=== PATIENT | female | born 1950 | race Caucasian/White ===

== ENCOUNTER 2019-11-02 12:38 | Observation (INO) | payer MEDICARE, OTHER ==
[2019-11-02 13:29] LABS: #Basophils 0.1 thou/uL (0.0-0.2); #Eosinphils 0.1 thou/uL (0.0-0.7); #Lymphocytes 1.4 thou/uL (1.20-3.40); #Monocytes 0.5 thou/uL (0.11-0.59); #Neutrophils 6.5 thou/uL (1.40-6.50); %Basophils 0.7 % (0.0-1.0); %Eosinophils 0.9 % (0.0-10.0); %Monocytes 5.9 % (0.0-10.0); %Neutrophils 76.6 % (42.0-75.0); Hemoglobin 12.2 g/dL (12.0-16.0); Mean Corpuscular HGB CONC 34.1 g/dL (32.0-36.0); Mean Corpuscular Hemoglobin 31.6 pg (27.0-31.0); Mean Corpuscular Volume 92.7 fL (78.0-98.0); Mean Platelet Volume 8.6 fL (7.4-10.4); Platelet Count 270 thou/uL (130-400); RBC Distribution Width 11.2 % (11.5-14.5); Red Blood Cell (RBC) Count 3.86 mill/uL (4.20-5.40); White Blood Cell (WBC) Count 8.5 thou/uL (4.8-10.8)
[2019-11-02] MEDS ORDERED: Aspirin 325 MG TAB ONE (13:32)
[2019-11-02 13:48] LABS: ALT (SGPT) 18 U/L (8-55); AST (SGOT) 16 U/L (5-34); Albumin 4.3 g/dL (3.4-4.8); Alkaline Phosphatase 104 U/L (40-110); Anion Gap 17 mmol/L (10-20); BUN (Urea Nitrogen) 18 mg/dL (9.8-20.1); Bilirubin, Total 0.7 mg/dL (0.2-1.2); CK (CPK) 87 U/L (29-168); Calc. Creatinine Clearance 0 mL/min (70-130); Calcium 9.9 mg/dL (7.8-10.44); Carbon Dioxide 25 mmol/L (23-31); Chloride 104 mmol/L (98-107); Estimated GFR-MDRD 61; Globulin 2.3 g/dL (2.4-3.5); Glucose 113 mg/dL (80-115); Potassium 4.7 mmol/L (3.5-5.1); Protein, Total 6.6 g/dL (6.0-8.3); Sodium 141 mmol/L (136-145)
--- NOTE | 2019-11-02 14:45 | RAD ---
PORTABLE CHEST: HISTORY: Chest pain. FINDINGS: Lung varma are clear. No evidence of infiltrate or vascular congestion. Heart and mediastinum unre markable. AICD leads appear normally placed. IMPRESSION: No acute finding. POS: [facility]
[2019-11-02 17:11] LABS: Troponin I Less than 0.010 ng/mL (< 0.028)
[2019-11-02 19:36] LABS: Troponin I 0.011 ng/mL (< 0.028)
[2019-11-02] MEDS ORDERED: hydrALAZINE 20 MG/ML VIAL SLOW IVP PRN (19:53)
[2019-11-02] MEDS ORDERED: Ondansetron ODT 4 MG TAB PO PRN (19:53)
[2019-11-02] MEDS ORDERED: Nitroglycerin 0.4 MG TAB (25 Tab Bottle) PO PRN (19:53)
[2019-11-02] MEDS ORDERED: Dextrose 50% Abboject 50 ML SYRINGE SLOW IVP PRN (19:53)
[2019-11-02] MEDS ORDERED: HumaLOG 300 UNITS/3 ML VIAL SC PRN ×2 (19:53)
[2019-11-02] MEDS ORDERED: Ondansetron PF 4 MG/2 ML Vial IVP PRN (19:53)
[2019-11-02] MEDS ORDERED: Dextrose 5% in Water 1,000 ML IV PRN (19:53)
[2019-11-02 20:06] VITALS: BMI 31.6
[2019-11-02] MEDS: Acetaminophen 325 MG TAB PO PRN (20:15)
[2019-11-02] MEDS: Famotidine 20 MG TAB PO SCH (20:29)
[2019-11-02] MEDS: Carvedilol 3.125 MG TAB PO SCH (20:30)
--- NOTE | 2019-11-03 00:23 | HP ---
PRIMARY CARE PHYSICIAN: Ria Rios, is a nurse practitioner. CLINICAL LABORATORY TECHNICIAN: Dr. Jatinder Manning in [facility] and his number is [phone]. CHIEF COMPLAINT: Chest pain. HISTORY OF PRESENT ILLNESS: Ms. Sloan is a very pleasant 69-year-old female, who has a history of coronary artery disease as well as hypertension and diabetes. She was in her usual state until last night. She says that she was not doing anything in particular and suddenly started having pain in her left chest. It was in the area of her left breast. She says it felt like a deep ache and she says that it lasted anywhere from about 3:[address] down to 11:00 p.m. She rated it an 8/10. She did have some shortness of breath associated with it as well as some occasional palpitations, and she did feel a bit nauseated. She says the pain was similar to when she had a heart attack a few years ago, but just not nearly as severe and it was not as extensive, as she said prior when she had a heart attack, it encompassed her whole left side. She says by the time she came to the ER, it was only about a 1/10 to 2/10, and currently she is chest-pain free. She denies any leg swelling or any leg aches. She has not been on any long trips or excursions. REVIEW OF SYSTEMS: All systems were reviewed and are negative except for that mentioned in the history of present illness. PAST MEDICAL HISTORY: Significant for coronary artery disease, diabetes mellitus, hypertension, hyperlipidemia, and previous MO in 2013. PAST SURGICAL HISTORY: She has had a cholecystectomy. She has had a defibrillator placed. A lap band surgery and cataract surgery as well as cardiac stents. ALLERGIES: NO KNOWN DRUG ALLERGIES. SOCIAL HISTORY: She is a nonsmoker. She occasionally drinks. She is , has 2 children. CODE STATUS: Full code. FAMILY HISTORY: Significant for heart disease. CURRENT MEDICATIONS: Include: 1. Escitalopram 20 mg daily. 2. Lisinopril 5 mg daily. 3. Metformin 500 mg twice a day. 4. Etodolac 500 mg daily. 5. Levothyroxine 75 mcg daily. 6. Carvedilol 3.125 mg twice a day. 7. Aspirin 81 mg daily. 8. Lipitor 80 mg daily. PHYSICAL EXAMINATION: GENERAL: She is alert and oriented. She appears to be in no acute distress. She is well developed and well nourished. VITAL SIGNS: The blood pressure was 131/90, heart rate 66, respiratory rate of 18, temperature is 98.3, and O2 saturation is 100% on room air. HEENT: Her right pupil is slightly larger than the left, but they are reactive. Extraocular muscles are intact. Her sclerae anicteric. Throat, no erythema, no exudates. NECK: No adenopathy, no bruits. LUNGS: Clear to auscultation. No wheezing. No rales. No rhonchi. CARDIOVASCULAR: She has a normal S1 and S2. No S3 or S4. No murmurs, clicks, or rubs. ABDOMEN: Obese. It is soft, nontender, and nondistended. Positive for bowel sounds. No rebound. No guarding. No organomegaly. EXTREMITIES: There is no clubbing or cyanosis. No edema. NEUROLOGICAL: Grossly nonfocal. SKIN AND INTEGUMENT: No skin changes, no rash. LABORATORY DATA: Lab results: The white blood cell count is 8.5, hemoglobin 12.2, hematocrit is 35.8, and platelet count 270. Sodium 141, potassium 4.7, chloride is 104, CO2 is 25, BUN of 18, creatinine 0.91, glucose is 113, natriuretic peptide is 295. EKG was sinus rhythm with no acute ST-wave changes other than some Q-waves in V1 to V2, possibly indicating septal infarct and that is by my reading. Chest x-ray, the lungs were clear. There was no infiltrate, no congestion. AICD is in place. ASSESSMENT: 1. This is a pleasant 69-year-old female with a history of coronary artery disease, who presents to the emergency room with chest pain. The description of her pain is somewhat similar to what she had several years ago. Therefore, she will be placed in observation, ruled out. She had a stress test about eight months ago. Therefore, this will not be repeated. Instead, we will try to get her records from the [facility] for comparison. However, she has not had a recent echo. We will get an echocardiogram and consult Cardiology for further recommendations. 2. Diabetes mellitus. We will hold her metformin, place her on a sliding scale insulin for now in the event that she needs to undergo cardiac catheterization. 3. Hypertension. We will need to reconcile and restart her home medications as well as p.r.n. medicines and she will be placed on deep vein thrombosis and gastrointestinal prophylaxis. Job ID: [id number]
[2019-11-03] MEDS: Nitroglycerin 2% Ointment 1 INCH/1 GM Packet TOP SCH ×4 (00:43→20:53)
[2019-11-03 04:51] LABS: #Basophils 0.1 thou/uL (0.0-0.2); #Eosinphils 0.2 thou/uL (0.0-0.7); #Lymphocytes 1.6 thou/uL (1.20-3.40); #Monocytes 0.5 thou/uL (0.11-0.59); #Neutrophils 3.3 thou/uL (1.40-6.50); %Eosinophils 2.7 % (0.0-10.0); %Lymphocytes 29.2 % (21.0-51.0); %Monocytes 8.6 % (0.0-10.0); %Neutrophils 58.5 % (42.0-75.0); Hemoglobin 11.2 g/dL (12.0-16.0); Mean Corpuscular HGB CONC 33.1 g/dL (32.0-36.0); Mean Corpuscular Volume 93.7 fL (78.0-98.0); Mean Platelet Volume 8.7 fL (7.4-10.4); Platelet Count 217 thou/uL (130-400); RBC Distribution Width 11.2 % (11.5-14.5); Red Blood Cell (RBC) Count 3.62 mill/uL (4.20-5.40); White Blood Cell (WBC) Count 5.6 thou/uL (4.8-10.8)
[2019-11-03 05:09] LABS: Anion Gap 12 mmol/L (10-20); BUN (Urea Nitrogen) 13 mg/dL (9.8-20.1); Calc. Creatinine Clearance 87 mL/min (70-130); Calcium 8.9 mg/dL (7.8-10.44); Carbon Dioxide 28 mmol/L (23-31); Cardiac Risk 3.7 (Less than 4.5); Chloride 108 mmol/L (98-107); Cholesterol 140 mg/dl (< 200 Desired); Estimated GFR-MDRD 69; Glucose 119 mg/dL (80-115); HDL Cholesterol 38 mg/dL (>60 Neg Risk); LDL Cholesterol, Calculated 84 mg/dL; Potassium 4.3 mmol/L (3.5-5.1); Sodium 144 mmol/L (136-145); Triglycerides 88 mg/dL (Less than 150)
[2019-11-03] MEDS: Acetaminophen 325 MG TAB PO PRN (07:44)
[2019-11-03] MEDS ORDERED: Prevnar 13-Val Conj/PF 0.5 ML SYRINGE IM ONE (09:00)
--- NOTE | 2019-11-03 09:09 | RAD ---
EXAM: 3 views of the cervical spine HISTORY: Neck pain COMPARISON: None FINDINGS: AP, lateral, and open mouth odontoid views of the cervical spine shows normal height and al ignment of the vertebral bodies without fracture or subluxation. Mild degenerative changes are seen throughout the cervical spine with intervertebral disc space narrowing and osteophyte formation. No p revertebral soft tissue swelling is seen. IMPRESSION: Degenerative changes without acute osseous abnormality.
[2019-11-03] MEDS: Aspirin 325 mg Enteric Coated Tablet PO SCH (09:16)
[2019-11-03] MEDS: Enoxaparin Sodium 40 MG/0.4 ML SYRINGE SC SCH (09:16)
[2019-11-03] MEDS: Famotidine 20 MG TAB PO SCH ×2 (09:16→20:58)
--- NOTE | 2019-11-03 09:28 | PDOC.HOSPP ---
- Subjective Encounter Date: 11/03/19 Encounter Time: 09:26 Subjective: chest pain resolved - Objective Vital Signs & Weight: Vital Signs (12 hours) Temp Pulse Resp BP BP Pulse Ox 11/03/19 07:30 98.1 F 68 16 140/81 96 11/03/19 04:12 62 18 103/54 L 98 11/02/19 23:02 98.0 F 63 16 115/56 L 97 Weight Weight 184 lb 1.6 oz I&O: 11/02/19 11/03/19 11/04/19 06:59 06:59 06:59 Output Total 900 Balance -900 Result Diagrams: 11/03/19 04:20 11/03/19 04:20 Additional Labs: Accuchecks 11/02/19 20:58 POC Glucose 141 H Hospitalist ROS - Medication Medications: Active Medications Generic Name Dose Route Start Last Admin Trade Name Freq PRN Reason Stop Dose Admin Acetaminophen 650 mg 11/02/19 19:53 11/03/19 07:44 Tylenol PO 650 mg Q4H PRN Administration Headache/Fever/Mild Pain (1-3) Aspirin 325 mg 11/03/19 09:00 11/03/19 09:16 Ecotrin PO 325 mg DAILY YEISON Administration Carvedilol 3.125 mg 11/03/19 08:00 11/02/19 20:30 Coreg PO 3.125 mg BID-WM YEISON Administration Enoxaparin Sodium 40 mg 11/03/19 09:00 11/03/19 09:16 Lovenox SC 40 mg 0900 YEISON Administration Famotidine 20 mg 11/02/19 21:00 11/03/19 09:16 Pepcid PO 20 mg BID YEISON Administration Nitroglycerin 0.5 inch 11/02/19 22:00 11/03/19 03:33 Nitro-Bid 2% Ointment TOP Not Given Q8HR YEISON - Exam General Appearance: awake alert Neck: no JVD Heart: RRR, no murmur Respiratory: CTAB Gastrointestinal: soft, normal bowel sounds Extremities: no edema Hosp A/P (1) Chest pain Code(s): R07.9 - CHEST PAIN, UNSPECIFIED Status: Acute (2) CAD (coronary artery disease) Code(s): I25.10 - ATHSCL HEART DISEASE OF [place] CORONARY ARTERY W/O ANG PCTRS Status: Chronic Qualifiers: Coronary Disease-Associated Artery/Lesion type: [place] artery [place] vs. transplanted heart: seminole heart Associated angina: angina presence unspecified Qualified Code(s): I25.10 - Atherosclerotic heart disease of [place] coronary artery without angina pectoris (3) DM type 2 (diabetes mellitus, type 2) Status: Chronic Qualifiers: Diabetes mellitus terminal computer operator insulin use: without terminal computer operator use Diabetes mellitus complication status: without complication Qualified Code(s): E11.9 - Type 2 diabetes mellitus without complications - Plan discuss with cardiology
[2019-11-03] MEDS: Carvedilol 3.125 MG TAB PO SCH ×2 (12:11→17:00)
[2019-11-03] MEDS ORDERED: Regadenoson 0.4 MG/5 ML SYRINGE ONE (12:17)
--- NOTE | 2019-11-03 14:47 | CON ---
DATE OF CONSULTATION: 11/03/2019 REASON FOR CONSULTATION: Chest pain. HISTORY OF PRESENT ILLNESS: Ms. Sloan is a very pleasant 69-year-old white female, who comes to the hospital for chest pain. She has a cardiac history. She used to live in [place], and was being followed at [facility] by Dr. Jatinder Manning. She apparently had an anterior ST-elevation OH back in 2013. She states that she remembers being taken to the catheterization lab and being told that she received a stent to her maker. She regrets having waited 4 days with pain before showing up to the hospital back in 2013, and that caused her to have a weak heart. She does not remember the exact number that they told her of how good her EF might have been; however, she does tell me that she has received an AICD eventually. Her episode of chest pain was similar to what it was 6 years ago; however, much less prominent. She states she had a chest tightness in the left side of her chest. It was located, she could pinpoint with one finger under her left breast, closer to the sternum on the left side. She had it for about 8 hours, and decided to come in and not wait as she had done 6 years prior. When she arrived here, she was given morphine, which made the pain better. Nitroglycerin did not really help that much. PAST MEDICAL HISTORY: 1. Ischemic cardiomyopathy with a previous OH and stenting to the LAD. 2. CAD. 3. Type 2 diabetes. 4. Hypertension. 5. Hyperlipidemia. 6. Hypothyroidism. 7. Depression. 8. Osteoarthritis. SURGICAL HISTORY: 1. Cholecystectomy. 2. AICD placement. 3. Lap band surgery. 4. Cataract surgery. 5. Stenting to the LAD as above. ALLERGIES: NO KNOWN DRUG ALLERGIES. SOCIAL HISTORY: Former smoker, quit about 10 years ago. Social alcohol use. No drug use. FAMILY HISTORY: Early coronary artery disease. OUTPATIENT MEDICATIONS: 1. Escitalopram 20 mg a day. 2. Lisinopril 5 mg a day. 3. Metformin 500 twice a day. 4. Etodolac. 5. Levothyroxine 75 mcg a day. 6. Carvedilol 3.125 b.i.d. 7. Aspirin 81 a day. 8. Lipitor 80 mg a day. REVIEW OF SYSTEMS: A 12-point review of systems was done and was all negative unless stated in the history of present illness. PHYSICAL EXAMINATION: VITAL SIGNS: Temperature 98.2, pulse 60, respiratory rate 18, satting 99% on room air, and blood pressure 160/68. GENERAL: Awake, alert, and oriented x3, in no distress. HEENT: Normocephalic and atraumatic. NECK: Supple. LUNGS: Clear. CARDIOVASCULAR: S1 and S2. No S3 or S4. No murmurs. No rubs. ABDOMEN: Soft. Positive bowel sounds. EXTREMITIES: No edema. SKIN: Warm and dry. LABORATORY DATA: Laboratory work was reviewed. White count of 8, hemoglobin 12, hematocrit 35, and platelet count of 270. Chemistries were unremarkable. Troponin was undetectable. BNP was 295. Triglycerides of 88, cholesterol total 140, LDL of 84, and HDL of 38. Chest x-ray was reviewed, no acute pulmonary issues, AICD in place. ASSESSMENT AND PLAN: 1. Chest pain. 2. History of ischemic cardiomyopathy. 3. History of automatic implantable cardioverter-defibrillator placement. 4. History of stenting, presumed to be the left anterior descending. PLAN: 1. She states she had a stress test about a year and a half ago and she was confused, she tells me that the procedure she had about 6 to 8 months ago, was actually just an echo. Because of this, we will plan on further rectification with a nuclear stress test. We will plan on doing this today. If the stress test is abnormal, we will proceed with heart catheterization or if she continues to have episodes of chest pain. She is currently chest pain free. 2. Echocardiogram pending. Thank you for letting us to participate in the care of your patient. Further recommendations per results of echo and stress testing. Job ID: [id number]
[2019-11-04] MEDS: Acetaminophen 325 MG TAB PO PRN (05:01)
[2019-11-04] MEDS: Nitroglycerin 2% Ointment 1 INCH/1 GM Packet TOP SCH (05:20)
[2019-11-04] MEDS: Carvedilol 3.125 MG TAB PO SCH (08:12)
[2019-11-04] MEDS: Aspirin 325 mg Enteric Coated Tablet PO SCH (08:12)
[2019-11-04] MEDS: Famotidine 20 MG TAB PO SCH (08:13)
[2019-11-04] MEDS: Enoxaparin Sodium 40 MG/0.4 ML SYRINGE SC SCH (08:13)
--- NOTE | 2019-11-04 09:39 | NM ---
EXAM: Nuclear medicine cardiac perfusion examination with ejection fraction HISTORY: Chest pain TECHNIQUE: Rest images: 32.3 mCi technetium 99m sestamibi Stress images: 28.3 mCi of technetium 9M sestamibi; Lexiscan COMPARISON: None FINDINGS: Tomographic images: There is a fixed perfusion defects along the lateral wall extending to the apex. No reversible perfusion defects are seen. Gated images: Normal wall motion and ejection fraction of 55%. EDV: 84 mL LHR: 0.3 TID: 0.9 IMPRESSION: No evidence of ischemia. A fixed perfusion defect in the lateral wall extending to apex m ay be sequelae from remote infarction.
[2019-11-04 11:58] VITALS: BP 119/60; TEMP 97.7
--- NOTE | 2019-11-04 12:57 | PDOC.CPN ---
- Subjective Date: 11/04/19 Time: 12:54 Interval history: Doing well. No chets pain. - Review of Systems General: denies: fever/chills, weight/appetite/sleep changes, night sweats, fatigue Respiratory: denies: cough, congestion, shortness of breath, exercise intolerance Cardiovascular: denies: chest pain, palpitation, edema, paroxysmal nocturnal dyspnea, orthopnea Gastrointestinal: denies: nausea, vomiting, diarrhea, constipation, abd pain, GI bleeding Musculoskeletal: denies: pain, tenderness, stiffness, swelling, arthritis/ arthralgias Neurological: denies: numbness, syncope, seizure, weakness - Objective Allergies/Adverse Reactions: Allergies Allergy/AdvReac Type Severity Reaction Status Date / Time No Known Allergies Allergy Verified 11/02/19 20:03 Visit Medications: Current Medications Acetaminophen (Tylenol) 650 mg PO Q4H PRN PRN Reason: Headache/Fever/Mild Pain (1-3) Last Admin: 11/04/19 05:01 Dose: 650 mg Aspirin (Ecotrin) 325 mg PO DAILY [facility] Last Admin: 11/04/19 08:12 Dose: 325 mg Carvedilol (Coreg) 3.125 mg PO BID-[facility] Last Admin: 11/04/19 08:12 Dose: 3.125 mg Dextrose/Water (Dextrose 50%) 25 gm SLOW IVP PRN PRN PRN Reason: Hypoglycemia Enoxaparin Sodium (Lovenox) 40 mg SC 0900 [facility] Last Admin: 11/04/19 08:13 Dose: 40 mg Famotidine (Pepcid) 20 mg PO BID [facility] Last Admin: 11/04/19 08:13 Dose: 20 mg Glucagon (Glucagon) 1 mg IM PRN PRN PRN Reason: Hypoglycemia Hydralazine HCl (Apresoline) 10 mg SLOW IVP Q4H PRN PRN Reason: SBP > 180 and HR < 70 Dextrose/Water (D5w) 1,000 mls @ 0 mls/hr IV .Q0M PRN PRN Reason: Hypoglycemia Insulin Human Lispro (Humalog) 0 units SC .MODERATE SLIDING SC PRN PRN Reason: Moderate Correctional Scale Insulin Human Lispro (Humalog) 0 units SC .BEDTIME SLIDING SC PRN PRN Reason: Bedtime Correctional Scale Nitroglycerin (Nitro-Bid 2% Ointment) 0.5 inch TOP Q8HR [facility] Last Admin: 11/04/19 05:20 Dose: Not Given Nitroglycerin (Nitrostat) 0.4 mg PO Q5MIN PRN PRN Reason: Chest Pain Ondansetron HCl (Zofran Odt) 4 mg PO Q6H PRN PRN Reason: Nausea/Vomiting Ondansetron HCl (Zofran) 4 mg IVP Q6H PRN PRN Reason: Nausea/Vomiting Vital Signs & Weight: Vital Signs Temp Pulse Resp BP BP Pulse Ox 11/04/19 11:07 97.7 F 63 18 119/60 97 11/04/19 07:33 98.1 F 68 16 123/58 L 98 11/04/19 05:01 97.9 F 62 15 116/57 L 98 Weight 180 lb 9.6 oz - Physical Exam General: alert & oriented x3 HEENT: mucus membranes moist Neck: supple neck Cardiac: regular rate and rhythm Lungs: normal breath sounds Neuro: grossly intact Abdomen: active bowel sounds Extremities: no edema Skin: clear Musculoskeletal: no fluid collection - Labs Result Diagrams: 11/03/19 04:20 11/03/19 04:20 Troponin/CKMB Troponin I 0.011 ng/mL (< 0.028) 11/02/19 19:03 - Telemetry Sinus rhythms and dysrhythmias: sinus rhythm - Assessment/Plan Assessment/Plan: 1. Chest pain. 2. Hx of anterior VA 3. Presence of an AICD. PLAN: - EF on echo lower at 40-45% with anterior hypokineiss consistent with Hx of previous VA. Stress test was negative for reversible ischemia and EF improved to 55%. - Currently pain free, pain is reproducible to palpation. - May be discharged home. Will follow up in the office in 1 month. - if symptoms recur will need a [facility]
--- NOTE | 2019-11-04 14:04 | DIS ---
DATE OF ADMISSION: 11/02/2019 DATE OF DISCHARGE: 11/04/2019 DISPOSITION: Discharged to home. The patient has no PCP. She has recently moved to this area. FINAL DIAGNOSES: Chest pain, coronary artery disease, type 2 diabetes without complications, hypertension. DISCHARGE MEDICATIONS: Same as home medications. 1. Metformin 500 mg twice a day. 2. Bupropion XL 300 mg a day. 3. Lisinopril 5 mg a day. 4. Levothyroxine 75 mcg a day. 5. Etodolac ER 500 mg twice a day. 6. Lexapro 20 mg a day. 7. Coreg 6.25 mg twice a day. 8. Lipitor 80 mg a day. 9. Aspirin 81 mg a day. ALLERGIES: NO KNOWN DRUG ALLERGIES. CODE STATUS: Full. PENDING AT THE TIME OF DISCHARGE: Nothing. DIET: Diabetic. CONSULTATIONS: Dr. Delfin Baird, Cardiology. HOSPITAL COURSE: The patient admitted to the hospitalist service to the [place] [facility] room with chest pain. She has a history of coronary artery disease. Her EKG was unrevealing for acute change. LABORATORY DATA: CBC; white count 8.5, hemoglobin 12.2, platelet count 270,000. Comprehensive metabolic profile normal. Cardiac enzymes; troponin 0.01, 0.01, 0.01. The patient underwent an echocardiogram which shows a 45% EF; underwent a nuclear medicine cardiac stress test which was negative for reversible ischemia, EF 50%. It is discussed with the patient, she is to be discharged on her usual home medicines. Cardiorespiratory exam is unremarkable. Vital signs are stable. She has been instructed she needs to find a PCP and follow up in 3 days. Job ID: [id number]
--- NOTE | 2019-11-08 16:49 | EKG ---
Test Reason : CHEST PAIN Blood Pressure : / mmHG Vent. Rate : 067 BPM Atrial Rate : 067 BPM P-R Int : 150 ms QRS Dur : 074 ms QT Int : 408 ms P-R-T Axes : 046 049 060 degrees QTc Int : 431 ms Normal sinus rhythm Low voltage QRS Septal infarct , age undetermined Abnormal ECG Confirmed by DANIELA WALTERS DO ([id number]), assistant production editor BABAR POWELL ([id number]) on 11/08/2019 4:48:30 PM Referred By: Confirmed By:DANIELA WALTERS DO
== END 2019-11-04 14:09 | disposition home or self-care (01) ==
LOC: ERS 12:38 → 2SW 15:26
PROVIDERS: ADMIT Internal Medicine; ATTEND Internal Medicine
DX: R07.9 Chest pain, unspecified (principal); I25.10 Atherosclerotic heart disease of native coronary artery without angina pectoris; E11.9 Type 2 diabetes mellitus without complications; I10 Essential (primary) hypertension; I25.5 Ischemic cardiomyopathy; E78.5 Hyperlipidemia, unspecified; E03.9 Hypothyroidism, unspecified; F32.9 Major depressive disorder, single episode, unspecified; M19.90 Unspecified osteoarthritis, unspecified site; I25.2 Old myocardial infarction; Z79.82 Long term (current) use of aspirin; Z79.84 Long term (current) use of oral hypoglycemic drugs; Z79.899 Other long term (current) drug therapy; Z87.891 Personal history of nicotine dependence; Z90.49 Acquired absence of other specified parts of digestive tract; Z95.5 Presence of coronary angioplasty implant and graft; Z95.810 Presence of automatic (implantable) cardiac defibrillator; Z98.84 Bariatric surgery status
CPT/HCPCS: 71045; 72040; 78452; 80048; 80053; 80061; 82550; 82962 ×3; 83880; 84484 ×2; 85025 ×2; 93005; 93017; 93306; 94760 ×2; 99285; A9500; 36415; 36416; 96361; 96372; G0378; J1650; J2785

== ENCOUNTER 2020-03-18 10:38 | Outpatient (CLI) | payer MEDICARE ==
--- NOTE | 2020-03-18 12:08 | BD ---
BONE DENSITOMETRY: INDICATION: Postmenopausal osteoporosis screening. FINDINGS: Lumbar Spine: BMD (g/cm2) L1 1.203 T-Score: 1.9 L2 1.410 T-Score: 3.5 L3 1.151 T-Score: 0.6 L4 1.212 T-Score: 1.4 L1-L4 1.247 T-Score: 1.8 Femoral Neck: 0.770 T-Score: -0.7 Total Femur: 1.019 T-Score: 0.6 Impression: Bone mineral density of the lumbar spine and femoral neck are both within normal range. POS: [facility]
== END 2020-03-18 10:39 | disposition home or self-care (01) ==
LOC: BICMAMMO 10:38
PROVIDERS: ATTEND Family Medicine
DX: Z13.820 Encounter for screening for osteoporosis (principal); N95.1 Menopausal and female climacteric states
CPT/HCPCS: 77080